=== PATIENT | male | born 2000 | race Caucasian/White ===

== ENCOUNTER 2019-12-27 11:08 | Emergency (ER) | payer SELFPAY ==
[~2019-12-27] VITALS: Ht 172.7 cm; Wt 83.9 kg
[2019-12-27 11:18] VITALS: BP 131/78
[2019-12-27 12:25] VITALS: BP 131/78
== END 2019-12-27 12:26 | disposition home or self-care (01) ==
LOC: MED 11:08
DX: T26.00XA Burn of unspecified eyelid and periocular area, initial encounter (principal); W86.8XXA Exposure to other electric current, initial encounter; Y93.89 Activity, other specified; Y92.89 Other specified places as the place of occurrence of the external cause; Y99.8 Other external cause status
CPT/HCPCS: 99283